=== PATIENT | female | born 1975 | race Caucasian/White ===

== ENCOUNTER 2017-02-09 07:19 | Emergency (ER) | payer MEDICAID, OTHER ==
[2017-02-09 07:27] VITALS: O2SAT 100
[2017-02-09] MEDS ORDERED: Oxycodone/Acetaminophen 5/325 mg Tab PO STA (08:27)
[2017-02-09] MEDS ORDERED: Silver Sulfadiazine 1% Cream (20 gm) TOP STA (08:28)
[2017-02-09] MEDS ORDERED: Silver Sulfadiazine 1% Cream (20 gm) ONE (08:33)
[2017-02-09] MEDS ORDERED: Oxycodone/Acetaminophen 5/325 mg Tab ONE (08:33)
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
[2017-02-09 10:02] VITALS: BP 112/81; PULSE 70; RESP 20; TEMP 97.9
== END 2017-02-09 10:15 | disposition home or self-care (01) ==
LOC: C.ER 07:19
DX: T23.241A Burn of second degree of multiple right fingers (nail), including thumb, initial encounter (principal); T21.25XA Burn of second degree of buttock, initial encounter; X10.2XXA Contact with fats and cooking oils, initial encounter